=== PATIENT | female | born 1975 | race Caucasian/White ===

== ENCOUNTER 2016-12-11 08:15 | Outpatient (RCR) ==
--- NOTE | 2016-12-08 11:11 | RS.OPPTDN ---
Subjective Date of Note: 12/08/16 Visit #: 10 Date of Evaluation: 11/13/16 Payer Source: Insurance Treatment Diagnosis: Cervical radiculopathy, neck pain Current Subjective/complaints:: patient states she is doing better. States her right shoulder blade was flared up yesterday. States she used to be really hurting by Sunday afternoon. States this week, it was Sunday before she was having very much pain. Feels everything is helping. Pain Assessment - Pain Description Pain Location: neck and right shoulder Current Pain Intensity: mild - Treatment Modality: US with ES (Comb.) Parameters/Method Applied: 1.5 w/cm2 continuous with Estim current at 6, X 10 mins throughout right upper and middle traps. Patient Position: Sitting - Heat/Cryotherapy Treatment: Hot Pack (X 15 mins prior to US and manual therapy) Interventions - Exercise/Activities/Manual Therapy Exercises/Activities: None today. Manual Therapy: [id number] DTM and trigger point release to the right upper trap, and along medial border right scapula. Patient in sitting. Muscles respond well to deep tissue work. HOME EXERCISE PROGRAM: Isometric cervical retraction, scap retraction, cervical lateral flexion stretching, and doorway anterior chest stretch 3 position. Blue theraband for scapular retraction and shoulder extension. Wall angels. Prone cervical and scapular retraction. Scalene and mid scapular stretching. - Charges Total Direct Minutes: 24 mins Total Treatment Time: 39 mins Procedures billed for this date of service:: HP, UScom, EX Assessment: Patient reporting good progress with decreased radiating symptoms. Main issue continues to be right scapular region, however she does report this pain does not come on as quickly as it use to with her work duties. She demonstrates potential to benefit from continued treatment next week with summarization of HEP and home management techinques. Patient Education: Education of diagnosis Patient demonstrates compliance with HEP?: Yes Short Term Goals Goal #1: Right UE symptoms localized. Goal to be met by: 11/27/16 (85%) Progress towards Goal:: Progressing Goal #2: Tenderness in the right upper and middle traps decreased to minimal. Goal to be met by: 11/27/16 (40%) Progress towards Goal:: Progressing Goal #3: Patient to demonstrate good postural awareness. Goal to be met by: 11/27/16 (100%) Progress towards Goal:: Met [employer] Goals Goal #1: Pt knows HEP and to continue ex's to maintain functional level at D/C. Goal to be met by: 12/23/16 Progress towards goal: Progressing Goal #2: Score on Neck Disability index improved to 20. Goal to be met by: 12/23/16 Goal #3: Pt able to perform work activities with minimal neck or right UE symptoms. Goal to be met by: 12/23/16 (50%) Progress towards goal: Progressing Goal #4: Pt will tolerate prolonged sitting with minimal neck or UE symptoms. Goal to be met by: 12/23/16 Progress towards goal: Progressing Plan PLAN OF CARE EXPIRES ON:: 12/23/16 ORDER # VISITS AND/OR THROUGH DATE: 12/23/16 Comments:: Continue two more visits next week to gain further relief of muscle tone and pain and summarize home management/HEP.
--- NOTE | 2016-12-11 10:11 | RS.OPPTDN ---
Subjective Date of Note: 12/11/16 Visit #: 11 Date of Evaluation: 11/13/16 Payer Source: Insurance Treatment Diagnosis: Cervical radiculopathy, neck pain Current Subjective/complaints:: Patient reports last treatment of USCOM helped reduce right mid scapular region pain. She is hopefull this will continue to reduce pain while she works this week. Pain Assessment - Pain Description Pain Location: neck and right shoulder Current Pain Intensity: mild - Treatment Modality: US with ES (Comb.) Parameters/Method Applied: [id number] with US @ 1.5w/cm2 and Estim @ 10-11p.v. to the right mid scapular musculature prior to MT. Patient Position: Sitting - Heat/Cryotherapy Treatment: Hot Pack ([id number] to the c-spine prior to USCOM and EX. Patient in supine. ) Interventions - Exercise/Activities/Manual Therapy Exercises/Activities: Discussed HEP and progression of postural strengthening exercises. Manual Therapy: [id number] DTM and trigger point release to the right upper trap, and along medial border right scapula. Patient in sitting. Total minutes of Manual Therapy: 12mins HOME EXERCISE PROGRAM: Isometric cervical retraction, scap retraction, cervical lateral flexion stretching, and doorway anterior chest stretch 3 position. Blue theraband for scapular retraction and shoulder extension. Wall angels. Prone cervical and scapular retraction. Scalene and mid scapular stretching. - Charges Total Direct Minutes: 24mins Total Treatment Time: 44mins Procedures billed for this date of service:: HP, USCOM, MT Assessment: Patient responding well to addition of modalities, manual therapy, and progression of postural strengthening. Patient Education: Home Exercise Program Patient demonstrates compliance with HEP?: Yes Short Term Goals Goal #1: Right UE symptoms localized. Goal to be met by: 11/27/16 (90%) Progress towards Goal:: Progressing Goal #2: Tenderness in the right upper and middle traps decreased to minimal. Goal to be met by: 11/27/16 (50%) Progress towards Goal:: Progressing Goal #3: Patient to demonstrate good postural awareness. 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 Goal to be met by: 12/23/16 Progress towards goal: Progressing Goal #2: Score on Neck Disability index improved to 20. Goal to be met by: 12/23/16 Goal #3: Pt able to perform work activities with minimal neck or right UE symptoms. Goal to be met by: 12/23/16 (50%) Progress towards goal: Progressing Goal #4: Pt will tolerate prolonged sitting with minimal neck or UE symptoms. Goal to be met by: 12/23/16 Progress towards goal: Progressing Plan PLAN OF CARE EXPIRES ON:: 12/23/16 ORDER # VISITS AND/OR THROUGH DATE: 12/23/16 PLAN: Progress Exercises (Continue modalities and manual therapy to reduce muscle tone and pain with work and daily activities.)
--- NOTE | 2016-12-25 16:06 | RS.QUICKDC ---
Discharge from PT Date of Discharge: 12/25/16 Number of Visits: 11 Reason for Discharge: Patient attended 11 sessions and responded well to treatment. She reported localization of UE radicular symptoms and ability to work a full day without aggravating symptoms. She will continue HEP. Discharge.
== END 2017-01-04 ==
PROVIDERS: ATTEND Orthopaedic Surgery
DX: M54.12 Radiculopathy, cervical region (principal); M50.30 Other cervical disc degeneration, unspecified cervical region; M54.2 Cervicalgia